=== PATIENT | male | born 1940 | race Hispanic/Latino ===

== ENCOUNTER 2017-04-13 08:19 | Outpatient (CLI) | payer MEDICARE, OTHER ==
--- NOTE | 2017-04-13 11:06 | XRay Report ---
CHEST 2 VIEWS INDICATION: Cough. COMPARISON: None similar. FINDINGS: PA and lateral chest radiographs demonstrate bibasilar interstitial infiltrates, presumed chronic with scarring. Blunting of right lateral costophrenic angle on the frontal view as well. Normal cardiomediastinal silhouette. Aortic knob calcifications. Emphysematous changes possible. Demineralized bones with multilevel spinal spondylosis. Lower cervical fusion hardware. CONCLUSION: Presumed chronic bibasilar interstitial pneumonias and various other incidental findings, as above. Please also correlate clinically and with prior relevant imaging, if available. Thank you for the opportunity to participate in this patient's care.
== END 2017-04-13 08:20 | disposition home or self-care (01) ==
LOC: SPVIMAG 08:19
PROVIDERS: ATTEND Internal Medicine
DX: R05 Cough (principal); I70.0 Atherosclerosis of aorta; M47.899 Other spondylosis, site unspecified
CPT/HCPCS: 71020

== ENCOUNTER 2017-05-28 09:04 | Outpatient (CLI) | payer MEDICARE, OTHER ==
--- NOTE | 2017-05-28 10:01 | XRay Report ---
ROUTINE CHEST, TWO VIEWS: HISTORY: Chronic interstitial lung disease. Compared to 04/13/17. Prominent interstitial markings are again noted in the lower lung zones which is unchanged. There are paucity of pulmonary markings in the upper lung zones suggesting emphysematous changes. No evidence for mass, consolidation, pleural effusion or pneumothorax. Heart size remains within normal limits. The bony structures are grossly intact. IMPRESSION: No change. Mild emphysematous changes with mild chronic interstitial changes at the lung bases is suspected. If further evaluation is needed CT chest with high resolution protocol could be obtained.
== END 2017-05-28 09:05 | disposition home or self-care (01) ==
LOC: SPVIMAG 09:04
PROVIDERS: ATTEND Internal Medicine
DX: J84.9 Interstitial pulmonary disease, unspecified (principal)
CPT/HCPCS: 71020

== ENCOUNTER 2017-06-11 06:47 | Outpatient (CLI) | payer MEDICARE, OTHER ==
--- NOTE | 2017-06-11 07:36 | Cat Scan Report ---
CT CHEST WITHOUT CONTRAST: HISTORY: Cough. TECHNIQUE: Helical CT with sagittal and coronal reformatted images. FINDINGS: Severe centrilobular emphysematous changes are identified bilaterally. There is patchy infiltrate in the lateral right lower lobe concerning for pneumonia. No evidence for mass, pleural effusion or pneumothorax. Heart size is normal. Moderate atherosclerotic plaques in the aorta and coronary arteries are noted. No pericardial effusion. No thoracic adenopathy. The thyroid gland, tracheobronchial tree and esophagus are within normal limits. There is moderate thoracic spondylosis. No acute fracture or bony lesion is appreciated. Limited images of the upper abdomen demonstrate bilateral renal cysts with the largest cyst measuring 8 cm at the superior pole the right kidney. IMPRESSION: Emphysema. Right lower lobe airspace opacity concerning for pneumonia. Atherosclerotic disease.
== END 2017-06-11 06:48 | disposition home or self-care (01) ==
LOC: CT 06:47
PROVIDERS: ATTEND Internal Medicine
DX: J43.9 Emphysema, unspecified (principal); R91.8 Other nonspecific abnormal finding of lung field; I70.0 Atherosclerosis of aorta; I25.10 Atherosclerotic heart disease of native coronary artery without angina pectoris; M47.894 Other spondylosis, thoracic region; N28.1 Cyst of kidney, acquired
CPT/HCPCS: 71250

== ENCOUNTER 2017-08-21 07:22 | Outpatient (CLI) | payer MEDICARE, OTHER ==
--- NOTE | 2017-08-21 08:33 | Cat Scan Report ---
CT CHEST WITHOUT CONTRAST: HISTORY: Pneumonia of right lower lobe. COMPARISON: CT chest dated 06/17/17. TECHNIQUE: Helical CT in 1.25mm intervals without IV contrast. Sagittal and coronal reformatted images. FINDINGS: Thyroid gland: normal. Tracheobronchial tree: normal. Esophagus: normal. Heart: Normal size. Moderate coronary artery calcifications are noted. No pericardial effusion. Mediastinum: normal. Lung Carrillo: Moderate to severe emphysematous changes are identified bilaterally. Focal subpleural scarring at the right apex is noted. No obvious mass or nodule. There is patchy peribronchial infiltrate throughout the lateral and posterior segments of the right lower lobe which could represent pneumonia. No pleural effusion or pneumothorax. Musculoskeletal: Osteopenia and degenerative changes throughout the thoracic spine are noted. No bony lesion or displaced fracture detected. IMPRESSION: Emphysema. Right lower lobe infiltrate consistent with history of pneumonia. Osteopenia.
== END 2017-08-21 07:23 | disposition home or self-care (01) ==
LOC: CT 07:22
PROVIDERS: ATTEND Internal Medicine
DX: J43.9 Emphysema, unspecified (principal); J18.1 Lobar pneumonia, unspecified organism; I25.10 Atherosclerotic heart disease of native coronary artery without angina pectoris; M85.88 Other specified disorders of bone density and structure, other site; M47.894 Other spondylosis, thoracic region
CPT/HCPCS: 71250

== ENCOUNTER 2017-09-17 08:29 | Outpatient (CLI) | payer MEDICARE, OTHER ==
--- NOTE | 2017-09-17 09:30 | XRay Report ---
XRAY CHEST TWO VIEWS: 09/17/17 08:29:00 CLINICAL: Cough.Persistent infiltrate. COMPARISON: 06/11/17 FINDINGS: The chest is unchanged. Persistent bibasal faint opacities which are likely related to gynecomastia rather than infiltrate. Persistent blunting of the right costophrenic angle. Normal heart with a left ventricular contour. Atherosclerotic changes in the aorta. Fusion hardware in the lower cervical spine. Moderate degenerative change in the thoracic spine. IMPRESSION: No acute cardiopulmonary process.Bilateral gynecomastia.
== END 2017-09-17 08:30 | disposition home or self-care (01) ==
LOC: SPVIMAG 08:29
PROVIDERS: ATTEND Specialist
DX: R91.8 Other nonspecific abnormal finding of lung field (principal); N62 Hypertrophy of breast; M43.22 Fusion of spine, cervical region; M47.894 Other spondylosis, thoracic region
CPT/HCPCS: 71020